=== PATIENT | female | born 1975 | race Caucasian/White ===

== ENCOUNTER → 2018-05-01 | Outpatient (CLI) | payer OTHER ==
[~2018-05-01] MED LIST: PRENATAL VITAMI1 TA5 PO
== END ==
LOC: MC.RAD 09:55
DX: Z12.31 Encounter for screening mammogram for malignant neoplasm of breast (principal)

== ENCOUNTER → 2020-07-13 | Outpatient (CLI) | payer OTHER | LOC: MC.RAD 07:56 | DX: Z12.31 Encounter for screening mammogram for malignant neoplasm of breast (principal) ==

== ENCOUNTER → 2022-05-20 | Day surgery (SDC) | payer OTHER ==
[~2022-05-20] VITALS: Ht 167.6 cm; Wt 67.8 kg
[~2022-05-20] MED LIST changes: +MULTI-VITAMIN W1 TA1 PO; +OMEGA-3 1000 MG1 CAP PO
[2022-05-20 07:43] VITALS: BP 112/76; PULSE 95; TEMP 98.2
[2022-05-20 08:30] VITALS: BP 100/82; PULSE 76
[2022-05-20 08:45] VITALS: BP 111/75; PULSE 69; TEMP 98
--- NOTE | 2022-05-20 09:05 | NUR ---
PATIENT IS DISCHARGED AT THIS TIME ACCOMPANIED BY TO HOME BOUND VEHICLE IN WHEELCHAIR. PATIENT IS ALERT AND ORIENTED, STATES THAT SHE IS TIRED BUT IS ABLE TO VERBALIZE UNDERSTANDING OF DISCHARGE INSTRUCTIONS AND TOLERATE PO FOOD AND LIQUID. IS IN ROOM DURING EDUCATION AND ALSO VERBALIZES UNDERSTANDING. PATIENT STATED THAT SHE IS HAVING SOME SLIGHT DISCOMFORT BUT IT FEELS SIMILAR TO GAS PAIN AND DENIES ANY INTERVENTION AT THIS TIME. PATIENT ALSO REQUESTED [employer] FOR THE TRIP HOME DUE TO HER GETTING CAR SICK AT TIME JUST TO BE PROACTIVE.
== END ==
LOC: SDCO 07:05
DX: Z12.11 Encounter for screening for malignant neoplasm of colon (principal)
CPT/HCPCS: J2704; J7120

== ENCOUNTER → 2023-11-25 | Outpatient (CLI) | payer OTHER | LOC: MC.RAD 10:01 | DX: Z12.31 Encounter for screening mammogram for malignant neoplasm of breast (principal) ==